=== PATIENT | female | born 1980 | race Caucasian/White ===

== ENCOUNTER 2017-03-23 13:30 | Emergency (ER) | payer SELFPAY ==
[2017-03-23 15:46] VITALS: BP 106/64
--- NOTE | 2017-03-23 16:15 | ED ---
Upper Extremity Pain - HPI Summary HPI Summary: Patient presents with right volar wrist swelling x2 days. She states there was a cyst present for several years which only caused mild irritation intermittently.. However, 2 days ago she states she must have twisted it incorrectly and feels as though it burst. Not there is slight swelling in the volar wrist with no evidence of cyst. She states the area is only mildly tender , but she was concerned if this was fluid buildup and if the area would heal properly. She has not taken anything for pain or inflammation. She states the discomfort is worse with flexion and better with rest. - History of Current Complaint Chief Complaint: EDExtremityUpper Stated Complaint: RT WRIST INFLAMMATION Time Seen by Provider: 03/23/17 14:51 Hx Obtained From: Patient Hx Last Menstrual Period: 1 MONTH AGO Mechanism Of Injury: Twisted Onset/Duration: Started Days Ago Timing: Constant Severity Initially: Mild Severity Currently: Mild Pain Location: Wrist Character: Aching Aggravating Factor(s): Flexion Alleviating Factor(s): Rest, Ice Associated Signs & Symptoms: Positive: Swelling Related History: Dominant Hand Right - Risk Factors Non-Orthopedic Risk Factor: Negative DVT Risk Factors: Negative Septic Arthritis Risk Factor: Negative Compartment Syndrome Risk Factors: Pain - Allergies/Home Medications Allergies/Adverse Reactions: Allergies Allergy/AdvReac Type Severity Reaction Status Date / Time Ciprofloxacin [From Cipro] Allergy Severe RED STREAK Verified 12/01/15 10:34 FROM IV SITE, RASH Ketorolac Allergy Severe SWEATING, Verified 12/01/15 10:34 HALLUCINATIONS, BLOOD IN STOOL NSAIDs Allergy Severe SWEATING, Verified 12/01/15 10:34 HALLUCINATIONS, BLOOD IN STOOL Tramadol AdvReac Severe EXTREME Verified 12/01/15 10:34 EXHAUSTION PMH/Surg Hx/FS Hx/Imm Hx Previously Healthy: Yes Endocrine/Hematology History: Denies: Hx Diabetes Cardiovascular History: Denies: Hx Hypertension, Hx Pacemaker/ICD History: Reports: Hx Kidney Stones Denies: Hx Renal Disease Musculoskeletal History: Reports: Hx Back Problems Sensory History: Denies: Hx Hearing Aid Psychiatric History: Reports: Hx Anxiety, Hx Depression Denies: Hx Panic Disorder - BEING TREATED FOR ANXIETY/DEPRESSION - Surgical History Surgery Procedure, Year, and Place: LITHOTRIPSY X4 -THERMAL ABLASSION ON S1-S4 JOINT. TUBAL LIGATION. APPENDIX - Immunization History Hx Pertussis Vaccination: No Immunizations Up to Date: Unable to Obtain/Confirm Infectious Disease History: Denies: Traveled Outside the [place] in Last 30 Days - Family History Known Family History: Positive: None Family History: R & n/C - Social History Alcohol Use: Occasionally Hx Substance Use: Yes Substance Use Type: Reports: Marijuana Hx Tobacco Use: Yes Smoking Status (MU): Light Every Day Tobacco Smoker Type: Cigarettes Amount Used/How Often: 1/2 PPD Review of Systems Constitutional: Negative Eyes: Negative Cardiovascular: Negative Respiratory: Negative Positive: no symptoms reported, see HPI Positive: Arthralgia Skin: Negative Psychological: Normal All Other Systems Reviewed And Are Negative: Yes Physical Exam Triage Information Reviewed: Yes Vital Signs On Initial Exam: Initial Vitals Temp Pulse Resp BP Pulse Ox 98.6 F 70 18 109/71 98 03/23/17 13:31 03/23/17 13:31 03/23/17 13:31 03/23/17 13:31 03/23/17 13:31 Completion Of Physical Exam Limited Due To: Dementia Appearance: Positive: Well-Appearing, Well-Nourished Skin: Positive: Warm, Skin Color Reflects Adequate Perfusion Head/Face: Positive: Normal Head/Face Inspection Eyes: Positive: EOMI, SONIA, Conjunctiva Clear Neck: Positive: Supple, No Lymphadenopathy Respiratory/Lung Sounds: Positive: Clear to Auscultation, Breath Sounds Present Cardiovascular: Positive: Normal, RRR, Pulses are Symmetrical in both Upper and Lower Extremities Musculoskeletal: Positive: Pain @ - volar wrist inflammation Neurological: Positive: Speech Normal Psychiatric: Positive: Normal Diagnostics - Vital Signs Vital Signs Temp Pulse Resp BP Pulse Ox 03/23/17 15:45 97.8 F 61 17 106/64 03/23/17 13:31 98.6 F 70 18 109/71 98 - Laboratory Lab Statement: Any lab studies that have been ordered have been reviewed, and results considered in the medical decision making process. Course/Dx - Course Course Of Treatment: Patient evaluated for wrist pain. Area is without erythema , warmth or other signs of infection. Small amount of fluid, likely from a burst ganglion cyst. She is to follow up with Ortho. She is ok with this plan and OK for discharge. - Diagnoses Differential Diagnosis/HQI/PQRI: Positive: Bursitis, Strain, Sprain Provider Diagnoses: Ganglion cyst of volar aspect of right wrist Discharge - Discharge Plan Condition: Stable Disposition: HOME Patient Education Materials: Ganglion Cysts (ED) Referrals: Doroteo Tillman MD [Medical Doctor] - Neelima Jessica NP [Primary Care Provider] - Additional Instructions: Ice to the wound 2-3 times daily until follow up with PCP If any worsening symptoms develop, return to the ED This is likely a ruptured ganglion cyst with dispersion of fluid, I would like you to follow up with a ortho MD to assure there is no additional tissue damage and for further workup Ibuprofen 600mg three times daily for pain and inflammation x 5 days.
== END 2017-03-23 15:46 | disposition home or self-care (01) ==
LOC: ED 13:30
DX: M67.431 Ganglion, right wrist (principal); F17.210 Nicotine dependence, cigarettes, uncomplicated
CPT/HCPCS: 99281

== ENCOUNTER 2017-04-18 23:31 | Emergency (ER) | payer SELFPAY ==
[2017-04-19] MEDS ORDERED: HYDROcodone/ACETAMIN 5-325 MG* 1 TAB PO ONE (02:27)
[2017-04-19 02:48] VITALS: BP 120/72
--- NOTE | 2017-04-19 08:31 | RAD ---
Indication: Right rib injury. 3 views of the right ribs and dual energy PA views of the chest demonstrates fractures of the right seventh, eighth and ninth rib anterolaterally. Minimal displacement is noted. Views of the chest demonstrate no pneumothorax. IMPRESSION: Nondisplaced or minimally displaced fractures of the right seventh, eighth and ninth rib anterolaterally.
--- NOTE | 2017-05-28 10:21 | ED ---
Back Pain - HPI Summary HPI Summary: Patient presents with right rib pain after a fall in the [employer] yesterday. She denies SOB, but feels pain when taking a deep breath. Denies other injuries with the fall. She denies taking any medication as she has multiple allergies. Worse with deep breaths and movement and coughing, better with rest. Pain is 8/10 constant and sharp. She denies back pain. - History of Current Complaint Chief Complaint: EDGeneral Stated Complaint: RT SIDE RIB PAIN Time Seen by Provider: 04/19/17 01:04 Hx Obtained From: Patient Hx Last Menstrual Period: 1 MONTH AGO Onset/Duration: Sudden Onset Onset/Duration: Started Hours Ago Timing: Constant Back Pain Location: Is Discrete @ - right lower lateral ribs Severity Initially: Moderate Severity Currently: Moderate Pain Intensity: 6 Pain Scale Used: 0-10 Numeric Character: Aching Aggravating Symptom(s): Movement, Cough Alleviating Symptom(s): Rest, Position Associated Signs And Symptoms: Positive: Negative - Risk Factors AAA Risk Factors: Negative TAD Risk Factors: Negative Cauda Equina Risk Factors: Negative Epidural Abscess Risk Factors: Negative - Allergies/Home Medications Allergies/Adverse Reactions: Allergies Allergy/AdvReac Type Severity Reaction Status Date / Time Ciprofloxacin [From Cipro] Allergy Severe RED STREAK Verified 04/18/17 23:41 FROM IV SITE, RASH Ketorolac Allergy Severe SWEATING, Verified 04/18/17 23:41 HALLUCINATIONS, BLOOD IN STOOL NSAIDs Allergy Severe SWEATING, Verified 04/18/17 23:41 HALLUCINATIONS, BLOOD IN STOOL Tramadol AdvReac Severe EXTREME Verified 04/18/17 23:41 EXHAUSTION PMH/Surg Hx/FS Hx/Imm Hx Previously Healthy: Yes Endocrine/Hematology History: Denies: Hx Diabetes Cardiovascular History: Denies: Hx Hypertension, Hx Pacemaker/ICD History: Reports: Hx Kidney Stones Denies: Hx Renal Disease Musculoskeletal History: Reports: Hx Back Problems Sensory History: Denies: Hx Hearing Aid Psychiatric History: Reports: Hx Anxiety, Hx Depression Denies: Hx Panic Disorder - BEING TREATED FOR ANXIETY/DEPRESSION - Surgical History Surgery Procedure, Year, and Place: LITHOTRIPSY X4 -THERMAL ABLASSION ON S1-S4 JOINT. TUBAL LIGATION. APPENDIX - Immunization History Hx Pertussis Vaccination: No Immunizations Up to Date: Unable to Obtain/Confirm Infectious Disease History: No Infectious Disease History: Denies: Traveled Outside the [place] in Last 30 Days - Family History Known Family History: Positive: None Family History: R & n/C - Social History Occupation: Employed Full-time Lives: With Family Alcohol Use: Rare Hx Substance Use: Yes Substance Use Type: Reports: Marijuana Hx Tobacco Use: Yes Smoking Status (MU): Light Every Day Tobacco Smoker Type: Cigarettes Amount Used/How Often: 1/2 PPD Review of Systems Constitutional: Negative Negative: Fever, Chills, Fatigue, Skin Diaphoresis Negative: Photophobia, Blurred Vision Negative: Epistaxis, Dental Pain, Sore Throat Negative: Palpitations, Chest Pain Negative: Shortness Of Breath, Cough Genitourinary: Negative Positive: no symptoms reported, see HPI Positive: Arthralgia - right rib pain Positive: Bruising Neurological: Negative All Other Systems Reviewed And Are Negative: Yes Physical Exam Triage Information Reviewed: Yes Vital Signs On Initial Exam: Initial Vitals Temp Pulse Resp BP Pulse Ox 98.2 F 81 16 114/67 98 04/18/17 23:35 04/18/17 23:35 04/18/17 23:35 04/18/17 23:35 04/18/17 23:35 Vital Signs Reviewed: Yes Appearance: Positive: Well-Appearing, Well-Nourished Skin: Positive: Warm, Skin Color Reflects Adequate Perfusion Head/Face: Positive: Normal Head/Face Inspection Eyes: Positive: EOMI, SONIA, Conjunctiva Clear Neck: Positive: Supple, No Lymphadenopathy Respiratory/Lung Sounds: Positive: Clear to Auscultation, Breath Sounds Present Cardiovascular: Positive: Normal, RRR, Pulses are Symmetrical in both Upper and Lower Extremities Musculoskeletal: Positive: Pain @ - right ribs Neurological: Positive: Sensory/Motor Intact, Alert, Oriented to Person Place, Time, Speech Normal Psychiatric: Positive: Normal AVPU Assessment: Alert Diagnostics - Vital Signs Vital Signs Temp Pulse Resp BP Pulse Ox 04/19/17 02:47 98 F 90 18 120/72 04/19/17 02:00 54 114/58 99 04/19/17 01:30 65 91/50 98 04/19/17 01:04 69 98 04/19/17 01:02 119/63 04/19/17 00:59 97 F 70 16 119/63 98 04/18/17 23:35 98.2 F 81 16 114/67 98 - Laboratory Lab Statement: Any lab studies that have been ordered have been reviewed, and results considered in the medical decision making process. Back Pain Course/Dx - Course Course Of Treatment: Patient presents with right rib pain after a fall. Pain is worse with movement and coughing and deep breaths - better with rest. Offered pain management to patient. 7th, 8th and 9th non-displaced rib fractures. She is encouraged incentive spirometry and encouraged pillows with coughing. She is given pain management and she is OK with discharge. Lungs CTA and no acute findings on PA/Lat chest xray. - Diagnoses Differential Diagnosis/HQI/PQRI: Positive: Fracture Provider Diagnoses: Rib fractures Discharge - Discharge Plan Condition: Stable Disposition: HOME Prescriptions: HYDROcodone/ACETAMIN 5-325 MG* [Doyline 5-325 TAB*] 1 tab PO Q4H PRN #18 tab MDD 6 PRN Reason: Pain Patient Education Materials: Rib Fracture (ED) Referrals: Neelima Jessica NP [Primary Care Provider] - Additional Instructions: Follow up with PCP Tylenol 650mg three times daily For pain not well controlled with tylenol, you may take the pain medication Use spirometer up to 4-5 times per day
== END 2017-04-19 02:48 | disposition home or self-care (01) ==
LOC: ED 23:31
DX: S22.41XA Multiple fractures of ribs, right side, initial encounter for closed fracture (principal); W19.XXXA Unspecified fall, initial encounter; Y92.9 Unspecified place or not applicable; F41.9 Anxiety disorder, unspecified; F32.9 Major depressive disorder, single episode, unspecified; F17.210 Nicotine dependence, cigarettes, uncomplicated
CPT/HCPCS: 99282